=== PATIENT | female | born 1990 | race Caucasian/White ===

== ENCOUNTER 2016-04-27 13:42 | Emergency (ER) | payer OTHER ==
[~2016-04-27] VITALS: Ht 160 cm; Wt 59.0 kg
[~2016-04-27 13:42] MED LIST: MULTIVITAMIN1 TA1 PO
[2016-04-27 13:48] VITALS: BP 129/70
--- NOTE | 2016-04-27 21:12 | NUR ---
PATIENT LEFT WITHOUT BEING SEEN BY DR. SALGUERO. NO FURTHER CARE PROVIDED FOR PATIENT.
== END 2016-04-27 21:12 | disposition left against medical advice (07) ==
LOC: MED 13:42
DX: R07.89 Other chest pain (principal); F41.9 Anxiety disorder, unspecified; Z53.21 Procedure and treatment not carried out due to patient leaving prior to being seen by health care provider

== ENCOUNTER 2017-02-21 16:42 | Emergency (ER) | payer OTHER ==
[~2017-02-21] VITALS: Ht 160 cm; Wt 62.4 kg
[~2017-02-21 16:42] MED LIST changes: +MULT-298 PO; -MULTIVITAMIN1 TA1 PO
[2017-02-21 16:56] VITALS: BP 127/75
--- NOTE | 2017-02-21 17:04 | NUR ---
NO BEDS AVAILALBLE AT THIS TIME; URINE SPECIMEN CUP PROVIDED; PT AMBULATES BACK TO THE [facility]
[2017-02-21 17:49] LABS: BASOPHILS # (AUTO) 0.3 K/uL (0.00-0.22); HEMATOCRIT 43.3 % (36-48); HEMOGLOBIN 14.4 g/dL (12.0-16.0); LYMPHOCYTES # (AUTO) 1.7 K/uL (2.5-16.5); MEAN CORPUSCULAR HEMOGLOBIN 32 pg (27-31); MEAN CORPUSCULAR HGB CONC 33 g/dL (33-37); MEAN CORPUSCULAR VOLUME 97 fL (80-94); MONOCYTES # (AUTO) 0.5 K/uL (0.8-1.0); NEUTROPHILS # (AUTO) 4.7 K/uL (1.8-7.7); PLATELET COUNT (AUTO) 255 K/uL (140-450); RED BLOOD CELL COUNT(AUTO) 4.48 MIL/uL (4.20-5.40); RED CELL DISTRIBUTION WIDTH 11.5 % (11.6-13.7); WHITE BLOOD COUNT (AUTO) 7.2 K/uL (4.8-10.8)
[2017-02-21 17:53] LABS: ANION GAP 15.2 (8-16); CARBON DIOXIDE 26.9 mmol/L (21-32); CREATININE 0.9 mg/dL (0.6-1.3); POTASSIUM 4.1 mmol/L (3.5-5.1)
[2017-02-21 17:59] LABS: APPEARANCE,URINE CLEAR (CLEAR); BILIRUBIN,URINE NEGATIVE (NEGATIVE); BLOOD, URINE 3+ (NEGATIVE); LEUKOCYTE ESTERASE ,URINE NEGATIVE (NEGATIVE); NITRITE, URINE NEGATIVE (NEGATIVE); PH,URINE 5.5 (5.0-9.0); UGLUCOSE NEGATIVE (NEGATIVE)
[2017-02-21 17:59] LABS: ALBUMIN 4.5 g/dL (3.4-5.0); TOTAL BILIRUBIN 0.5 mg/dL (0.0-1.0)
[2017-02-21 18:00] LABS: COLOR,URINE STRAW (YELLOW)
[2017-02-21 18:07] LABS: RBC,URINE 3-10 (FEW) /HPF (0-5); WBC,URINE NONE SEEN /HPF (0-5)
--- NOTE | 2017-02-21 18:22 | NUR ---
PATIENT AMBULATED TO OF #4
--- NOTE | 2017-02-21 18:29 | NUR ---
PATIENT PRESENTS TO ED WITH C/O RLQ PAIN 7/10 WORSE ON AMBULATION, NAUSEA, SPOTTING X 1 WK; LMP 12/04/2016;PT STATE SHE WAS DX W/ OVARIAN CYST BEFORE;FEELS NAUSEOUS BUT DENIES V/D; SKIN IS PINK/WARM/DRY; AAOX4 WITH EVEN AND STEADY GAIT; LUNGS CLEAR BL; HR EVEN AND REGULAR; PT DENIES ANY FEVER, CP, SOB, OR COUGH AT THIS TIME; PATIENT STATES PAIN OF 7/10 AT THIS TIME;PATIENT POSITIONED FOR COMFORT;INVERTER AND CLIPPER MADE AWARE OF PT'S CONDITION;
[2017-02-21 20:13] VITALS: BP 107/71
--- NOTE | 2017-02-21 20:13 | NUR ---
Patient discharged with v/s stable. Written and verbal after care instructions given and explained. Patient alert, oriented and verbalized understanding of instructions. Ambulatory with steady gait. All questions addressed prior to discharge. ID band removed. Patient advised to follow up with PMD. Rx of BISACODYL, MAG CITRATE given. Patient educated on indication of medication including possible reaction and side effects. Opportunity to ask questions provided and answered.
== END 2017-02-21 20:13 | disposition home or self-care (01) ==
LOC: MED 16:42
DX: K59.00 Constipation, unspecified (principal)
CPT/HCPCS: 36415; 80053; 81001; 81025; 82150; 83690; 84703; 85025; 87804; 99285